=== PATIENT | male | born 1940 | race Caucasian/White ===

== ENCOUNTER → 2016-07-30 | Outpatient (CLI) | payer MEDICARE ==
--- NOTE | 2016-07-24 17:37 | MH ---
cc: ABELARDOGABRIELA DATE OF ADMISSION: 07/30/2016 ADMITTING DIAGNOSIS: Cloudy posterior capsule right eye. HISTORY OF PRESENT ILLNESS This 75 year-old white male is coming through [facility] for the purpose of a YAG laser posterior capsulotomy of the right eye. He is status post bilateral cataract surgery with intraocular lens implants and YAG laser posterior capsulotomy on the left eye, and now is found to have a cloudy posterior capsule on the right eye and has elected to have a YAG laser posterior capsulotomy on that eye. PAST MEDICAL HISTORY The patient has a history of hypertension and cholesterol problems. PAST SURGICAL HISTORY: 1. Bilateral LASIK procedures in the eyes. 2. Bilateral cataract surgery with intraocular lens implant. 3. YAG laser posterior capsulotomy on the left eye in the past. 4. Right rotator cuff surgery. DAILY MEDICATIONS 1. Pravastatin. 2. Propecia. 3. Baby aspirin. 4. Lisinopril. 5. Metamucil. 6. Glucosamine chondroitin. 7. Probiotics. ALLERGIES: No known allergies. SOCIAL HISTORY Noncontributory. FAMILY HISTORY: Positive for father with cataract. REVIEW OF SYSTEMS: Noncontributory. OCULAR EXAMINATION: Patient's best-corrected visual acuity is 20/60 in the right eye and 20/20 in the left. Visual landaverde are full to confrontation testing. Extraocular muscle exam reveals full versions with orthophoria at distance and near. Pupils are 2 millimeters, equal, round, reactive to light without afferent defect. Anterior segment examination reveals dermatochalasis of the eye lid skin. Posterior chamber intraocular lens is in place bilaterally with a YAG laser posterior capsulotomy in the left eye and a cloudy posterior capsule in the right eye. Intraocular pressure is 20 in the right eye and 18 in the left by applanation tometry. Dilated fundus exam reveals sharp discs with cup-to-disc ratio of 0.1 bilaterally with optic nerve head Drusen present bilaterally. The macula is clear bilaterally. The posterior vitreous detachment is present bilaterally. There are condensation-like floaters in the vitreous in each eye. IMPRESSION: 1. Cloudy posterior capsule right eye. 2. Pseudophakia both eyes. 3. Posterior vitreous detachment both eyes. 4. Status post LASIK both eyes. PLAN: YAG laser posterior capsulotomy of the right eye through [facility]. MD ZACH Avalos/TANNER /5:13 PM /5:26 PM
[~2016-07-30] MED LIST: ASPI81 PO; BALANCED SALT SOLN OPHT IRRIG 15 ML BTL ONE; CALTTAB5 PO; DILA2TAB4 PO; FLUOROMETHOLONE 0.25% OPHT SUSP 5 ML BTL ONE; GLUC250C5 PO; HYPROMELLOSE 0.3 % OPTH GEL 10 GM (0.34 FL OZ) TUBE ONE; IBUP600 PO; KONS520C PO; LACTCAP7 PO; LISI10TA PO; PHENYLEPHRINE HCL 2.5% OPTH SOLN 2 ML BTL ONE; PRAV80 PO; PROM25SU8 PO; PROPARACAINE HCL 0.5% OPHT SOLN 15 ML BTL ONE; TAMS0.4C67 PO; TROPICAMIDE 1% OPHT SOLN 15 ML BTL ONE
--- NOTE | 2016-08-02 12:35 | MP ---
cc: GABRIELA JACOB DATE OF SURGERY: 07/30/2016 PREOPERATIVE DIAGNOSIS: Cloudy posterior capsule, right eye. POSTOPERATIVE DIAGNOSIS: Cloudy posterior capsule right eye. OPERATION: YAG laser posterior capsulotomy, right eye. SURGEON: Gabriela Jacob MD ANESTHESIA: Topical. COMPLICATIONS: None. INDICATIONS: See history and physical previously dictated. PROCEDURE: The patient arrived at [facility]. Blood pressure was 138/76, pulse 60, respirations 16. A drop of Alphagan P and Mydriacyl were instilled in the right eye. The patient was seated at the YAG laser. A drop of Alcaine was instilled in the right eye and a YAG laser posterior capsulotomy lens was placed on the anterior surface of the right cornea. YAG laser posterior capsulotomy was carried out utilizing 72 exposures of 1.4 millijoules. An adequate opening was seen following the procedure. A drop of Alphagan P was instilled topically. The patient was given a prescription for a topical steroid to be used four times per day and has an appointment for follow up on the first postoperative day in my office. The patient left the [facility] in satisfactory condition. MD ZACH Avalos/ /11:41 AM /11:25 AM
== END ==
LOC: CEYE 09:34
PROVIDERS: ATTEND Ophthalmology
DX: H26.491 Other secondary cataract, right eye (principal)